=== PATIENT | female | born 1970 | race African-American/Black ===

== ENCOUNTER 2024-06-10 16:00 | Emergency (ER) | payer SELFPAY ==
[~2024-06-10] VITALS: Ht 170.2 cm; Wt 79.4 kg
[2024-06-10 16:05] VITALS: PULSE 101; RESP 18; TEMP 97.8
[2024-06-10] MEDS: LEVETIRACETAM 1500 MG/100 ML 100 ML IV ONE (17:08)
[2024-06-10] MEDS: ACETAMINOPHEN 325 MG TAB PO ONE (17:30)
[2024-06-10 17:49] VITALS: BP 145/85; PULSE 87; RESP 18; TEMP 98; O2SAT 100
== END 2024-06-10 17:50 | disposition home or self-care (01) ==
LOC: ER 16:10
DX: G40.909 Epilepsy, unspecified, not intractable, without status epilepticus (principal); I10 Essential (primary) hypertension; E78.5 Hyperlipidemia, unspecified; B20 Human immunodeficiency virus [HIV] disease; F17.210 Nicotine dependence, cigarettes, uncomplicated
CPT/HCPCS: 99283